=== PATIENT | male | born 1965 ===

== ENCOUNTER 2024-03-19 11:46 | Outpatient (OUT) | payer OTHER, SELFPAY ==
--- NOTE | 2024-03-19 | XR_ITS ---
The [address] [address] Patient Name: MANJEET RODRIGUEZ MRN: [id number] date: 1965 Sex: M Assigned Patient Location: Current Patient Location: Accession/Order Number: [id number] Exam Date: 03/19/2024 12:55 Report Date: 03/19/2024 15:47 At the request of: ELBA FRAUSTO Procedure: XR foot RT min 3V PROCEDURE: XR foot RT min 3V DATE: 03/19/2024 12:55 PM EST COMPARISONS: None CLINICAL INDICATION: RIGHT FOOT PAIN FINDINGS: There is no evidence of fractures or other acute osseous abnormalities. There is slight deformity of the proximal third of the fifth metatarsal, possibly fracture. There is moderate first metatarsal phalangeal degenerative change. There is mild scattered interphalangeal degenerative change. There is spurring off the posterior os calcis at the attachment of the Achilles. There is mild midfoot and hindfoot degenerative changes. XR/XR foot RT min 3V IMPRESSION: Right foot radiographs show no evidence of acute abnormalities. Findings as discussed above. Electronically authenticated by: FRANCESCO MCINTYRE Date: 03/19/2024 15:47
== END 2024-03-19 11:47 | disposition home or self-care (01) ==
LOC: EC 11:46
PROVIDERS: Visit Provider Orthopaedic Surgery
DX: S92.354D Nondisplaced fracture of fifth metatarsal bone, right foot, subsequent encounter for fracture with routine healing (principal)
CPT/HCPCS: 73630